=== PATIENT | female | born 1950 | race Caucasian/White ===

== ENCOUNTER 2016-12-23 12:45 | Emergency (ER) | payer BC ==
[~2016-12-23] VITALS: Ht 144.8 cm; Wt 73.2 kg
[~2016-12-23 12:45] MED LIST: BUDESUS NAE; CHOL100027 PO; Calcium PO; ESTR1CRE PV; ETOD400T PO; Juice Plus PO; NRT25 PO; PANT40TA PO; TPM25 PO
[2016-12-23 12:50] VITALS: TEMP 36.7; Ht 144.8 cm; Wt 73.2 kg
[2016-12-23 13:39] LABS: BASO % 0.5 %; BASO ABS # 0.02 K/uL (0-0.2); COMPLETE YES; EOS % 3.1 %; HEMATOCRIT 41.6 % (37-47); IG% 0.2 %; LYMPH % 22.6 %; LYMPH ABS # 0.94 K/uL (1.2-3.4); MEAN CELL VOLUME 91.8 fL (80-100); MEAN CORPUSCULAR HGB CONC 34.9 g/dl (32-36); MEAN PLATELET VOLUME 10.9 fL (7.4-10.4); MONO % 8.9 %; NEUT % 64.7 %; PLATELET COUNT 212 K/uL (130-400); RED BLOOD COUNT 4.53 M/uL (4.2-5.4); WHITE BLOOD COUNT 4.16 K/uL (4.8-10.8)
[2016-12-23 13:42] VITALS: O2SAT 97
[2016-12-23 13:53] LABS: PROTHROMBIN TIME (PATIENT) 10.5 SECONDS (9.0-12.0)
[2016-12-23 14:00] LABS: BUN/CREATININE RATIO 20.8 (10-20); CALCIUM 9.3 mg/dl (8.5-10.1); CREATININE 1.1 mg/dl (0.60-1.20); POTASSIUM 3.8 mmol/L (3.5-5.1)
--- NOTE | 2016-12-23 14:10 | DIAGNOSTIC IMAGING REPORT ---
TWO VIEW CHEST CLINICAL HISTORY: Dyspnea. Lower extremity edema. FINDINGS: PA and lateral chest radiographs are compared to study dated 05/05/2012. The cardiomediastinal silhouette is unremarkable. There is minimal left basilar atelectasis. The lungs and pleural spaces are otherwise clear. There is no pneumothorax. The skeletal structures are osteopenic. The bony thorax appears intact. IMPRESSION: No active disease in the chest. Electronically signed by: Jas Wood M.D. 12/23/2016 2:09 PM Dictated Date/Time: 12/23/2016 2:08 PM
[2016-12-23] MEDS ORDERED: OPTIRAY 320 IV PRN (14:30)
--- NOTE | 2016-12-23 15:01 | DIAGNOSTIC IMAGING REPORT ---
CHEST CTA for PULMONARY ARTERIES CT DOSE: 291.83 mGy.cm HISTORY: Pain. Dyspnea. eval for PE TECHNIQUE: Multiaxial CT images of the chest were performed following the intravenous administration of contrast to evaluate the pulmonary arteries. Maximal intensity projection images were also obtained. COMPARISON STUDY: None. FINDINGS: There is a normal caliber thoracic aorta with no evidence for dissection. There is no evidence for pulmonary embolus. No pleural effusions. No pneumothorax. The liver and spleen are unremarkable. No mediastinal or hilar lymphadenopathy. The central airways are patent. The lungs are clear. There is minimal dependent basilar atelectasis IMPRESSION: No evidence for pulmonary embolus. Lungs are clear. Minimal dependent basilar atelectasis Electronically signed by: Galo Brian M.D. 12/23/2016 3:00 PM Dictated Date/Time: 12/23/2016 2:57 PM
--- NOTE | 2016-12-23 15:35 | DIAGNOSTIC IMAGING REPORT ---
ULTRASOUND RIGHT UPPER QUADRANT ABDOMEN CLINICAL HISTORY: Right upper quadrant abdominal pain. COMPARISON STUDY: Abdominal ultrasound dated 01/29/2013. Abdominal CT dated 09/18/2011. TECHNIQUE: Real-time, grayscale, and color flow sonography of the right upper quadrant of the abdomen was performed. Images are reviewed in the transverse and longitudinal planes. FINDINGS: Liver: The liver is normal in size and echotexture. There is no intrahepatic biliary ductal dilatation. The main portal vein is patent. Gallbladder: The gallbladder is normal in appearance. No gallstones are identified. There is no gallbladder wall thickening or pericholecystic fluid. A sonographic Serna's sign is reportedly absent. The common bile duct measures up to 0.3 cm in diameter. Pancreas: Visualized portions of the pancreatic head and body are normal in appearance. Right kidney: Survey images of the right kidney demonstrate mild cortical atrophy and are normal in echotexture. There is no hydronephrosis. Ascites: None. IMPRESSION: No acute sonographic abnormality is identified in the right upper quadrant. No gallstones are seen. Electronically signed by: Jas Wood M.D. 12/23/2016 3:33 PM Dictated Date/Time: 12/23/2016 3:32 PM
--- NOTE | 2016-12-23 18:00 | EXERCISE STRESS ECHO ---
*NOTICE TO RECEIVING CONSTITUTION PARTY AGENCY This information is strictly Confidential and protected under [place] law. [place] law prohibits you from making any further disclosure of this information unless further disclosure is expressly permitted by the written consent of the person to whom it pertains or is authorized by law. A general authorization for the release of medical or other information is not sufficient for this purpose. Hospital accepts no responsibility if the information is made available to any other person, INCLUDING THE PATIENT. Interpretation Summary * Name: MATT BROWN Study Date: 12/23/2016 04:03 PM BP: 133/81 mmHg * Patient Location: [facility] HR: 88 * : 1950 (M/d/yyyy) Gender: Female Height: 57 in * Age: 66 yrs Ethnicity: [place] Weight: 161 lb * Ordering Physician: Louis Taylor * Referring Physician: Brenna Liriano * Performed By: Asiya Alejandro RDCS * * Reason For Study: Dyspnea * BSA: 1.6 m2 * Limited color flow exam of aortic and mitral valves performed. * The exercise echocardiographic examination is normal without resting left ventricular wall motion abnormalities or inducible ischemia. * The left ventricular ejection fraction increases normally with stress. The left ventricular end-systolic cavity size reduces post-stress (normal response). The left ventricular wall motion with stress is normal. * The stress echocardiogram is negative for inducible ischemia. * The stress ECG response was normal * No arrhythmia were noted with stress. * All left ventricular wall segments became hyperdynamic with stress, with appropriate decrease in left ventricular chamber dimension. * Stress wall motion was normal. * -- Conclusions -- * No segmental left ventricular wall motion abnormalities are noted. Procedure Details * ECHOEX, CPT #65280 Left Ventricle * The left ventricle is normal in size. * There is normal left ventricular wall thickness. * Left ventricular systolic function is normal. * Ejection Fraction = 65-70%. * The left ventricular ejection fraction increases normally with stress. The left ventricular end-systolic cavity size reduces post-stress (normal response). The left ventricular wall motion with stress is normal. * No segmental left ventricular wall motion abnormalities are noted. * Resting wall motion: Normal. Stress wall motion: Appropriate increase in Left ventricular systolic function and decrease in cavity size. No stress induced segmental wall motion abnormalities. * The left ventricular ejection fraction increases normally with stress. The left ventricular end-systolic cavity size reduces post-stress (normal response). The left ventricular wall motion with stress is normal. Right Ventricle * The right ventricle is normal in size and function. Atria * The left atrial size is normal. * Right atrial size is normal. Mitral Valve * The mitral valve is normal. * There is trace mitral regurgitation. Tricuspid Valve * The tricuspid valve is normal. Aortic Valve * The aortic valve is trileaflet. * The aortic valve opens well. * No aortic regurgitation is present. Stress Parameters * The baseline ECG displays normal sinus rhythm. * The baseline ECG displays normal ST segments. * The stress ECG response was normal * The stress portion of this study was personally supervised by the undersigned interpreting physician. * Rest heart rate was '88' BPM. * Rest blood pressure was '133/81' * Maximum heart rate achieved was 157 bpm. * Maximum heart rate was 102 % of maximum age-predicted heart rate. * Maximum blood pressure was '182/68' * Total exercise time was '9:00' * Maximum exercise MET level achieved was '10.10' METS * Maximum treadmill speed was '3.40' miles per hour. * Maximum treadmill elevation was '14.00'% grade. * Exercise was terminated due to 'fatigue' * No chest pain during or following exercise. * Normal blood pressure response to exercise. MMode 2D Measurements and Calculations IVSd 0.93 cm LVIDd 3.4 cm LVIDs 1.9 cm LVPWd 0.81 cm IVS/LVPW 1.1 FS 45.2 % EDV(Teich) 47.0 ml ESV(Teich) 10.5 ml EF(Teich) 77.6 % EDV(cubed) 38.9 ml ESV(cubed) 6.4 ml EF(cubed) 83.5 % LV mass(C)d 80.6 grams LV mass(C)dI 49.1 grams/m\S\2 SV(Teich) 36.5 ml SI(Teich) 22.2 ml/m\S\2 SV(cubed) 32.5 ml SI(cubed) 19.8 ml/m\S\2 LA dimension 2.5 cm LVAd ap4 17.2 cm\S\2 LVLd ap4 6.5 cm EDV(MOD-sp4) 36.9 ml EDV(sp4-el) 38.5 ml LVAs ap4 8.3 cm\S\2 LVLs ap4 4.8 cm ESV(MOD-sp4) 12.2 ml ESV(sp4-el) 12.0 ml EF(MOD-sp4) 66.9 % EF(sp4-el) 68.8 % LVAd ap2 18.9 cm\S\2 LVLd ap2 6.6 cm EDV(MOD-sp2) 44.1 ml EDV(sp2-el) 45.7 ml LVAs ap2 9.5 cm\S\2 LVLs ap2 5.2 cm ESV(MOD-sp2) 14.8 ml ESV(sp2-el) 14.9 ml EF(MOD-sp2) 66.5 % EF(sp2-el) 67.3 % LVLd %diff 1.5 % EDV(MOD-bp) 40.4 ml LVLs %diff 6.2 % ESV(MOD-bp) 13.5 ml EF(MOD-bp) 66.6 % SV(MOD-sp4) 24.7 ml SI(MOD-sp4) 15.1 ml/m\S\2 SV(MOD-sp2) 29.3 ml SI(MOD-sp2) 17.9 ml/m\S\2 SV(MOD-bp) 26.9 ml SI(MOD-bp) 16.4 ml/m\S\2 SV(sp4-el) 26.5 ml SI(sp4-el) 16.2 ml/m\S\2 SV(sp2-el) 30.8 ml SI(sp2-el) 18.8 ml/m\S\2
[2016-12-23 18:09] VITALS: BP 129/87; PULSE 94; O2SAT 98
--- NOTE | 2016-12-23 19:26 | EMERGENCY ROOM VISIT NOTE ---
History Report prepared by Grazyna: Una Griffith Under the Supervision of: Dr. Louis Taylor M.D. First contact with patient: 12:57 Chief Complaint: SHORTNESS OF BREATH Stated Complaint: SOB, INDIGESTION, R SHOULDER PAIN Nursing Triage Summary: Patient reports vague GI symptoms of ? nausea/diarrhea and diffuse abdominal pain. Patinet also reports occassional SOB. These symptoms started begining of the year. Spoke with PCP this date adn todl to come to ED for evaluation. negative cough, fever, chills. History of Present Illness The patient is a 66 year old female who presents to the Emergency Room with complaints of worsening shortness of breath with exertion over the past 5 weeks. The patient states that is fairly active and walks every day. She notes that when she walks about 5-10 minutes, she starts to get short of breath. She also has to stop in the middle of climbing a few flights of stairs to catch her breath. The patient did not notice her symptoms until other people were noticing her shortness of breath and told her about it. Her notes that she was climbing 2.5 flights of stairs with him recently and she had to stop on the way to catch her breath. He notes that it is not unusual for her to climb stairs so it was out of the ordinary that she was so winded. Her shortness of breath has been becoming more persistent. Since November 17, the patient has noticed changes in her bowel movements. She states that she has one episode of loose stool each day as well as a significant amount of gas. She initially attributed it to a poor diet during the holiday season but has since changed her diet and has not noticed any improvement. She notes that she usually has a response when she changes her diet. Occasionally, her stool appears greasy. She notices abdominal cramping when she has bowel movements. She has been trying to watch what type of fatty foods she eats but she does occasionally eat ice cream. The patient has a history of reflux which is characterized by a burning sensation in her chest. She has not had any chest discomfort that feels unlike her typical reflux discomfort. Last Friday, the patient developed sharp pain under her right scapula that started as a 2/10 and increased to a 10/10 within several minutes. The pain worsened with movement of her right arm. It lasted at that intensity for about 5 -6 hours. She was out of breath at that time, but she was also worked up about the pain she was having and is unsure if it was related to feeling scared. Her did not notice her being short of breath at the time. This morning, the patient e-mailed her PCP regarding her symptoms. Her PCP was concerned and recommended that she come to the emergency room. The patient has swelling to her ankles that began when she was started on gabapentin a few years ago and never went away when she was taken off of it. The patient does note that she had a fall over a week ago in which she landed on her right shoulder. She denies any right shoulder pain or injuries from the fall. Currently she has some lower back pain. She has a history of sciatica and was on etodolac 800 mg which relieved her pain. Recently, her dose was cut in half in an attempt to wean her off of it and she has had some pain since then. She still has her gallbladder. She does not have a history of diabetes, blood clots , hypertension, or heart disease. There is a family history of heart disease on her father's side. Her father had his first cardiac event in his early 60s. Denies fevers, neck pain, cough, cold symptoms, arm pain, bloody stool, black stool, or other complaints. Denies recent travel, immobilization, or surgeries. Source of History: patient, spouse/significant other Onset: 5 weeks ago Position: other (global) Quality: other (shortness of breath) Timing: worsening Modifying Factors (Worsening): exertion Associated Symptoms: + back pain, No fevers, No hematochezia, No melena, No neck pain Note: Other symptoms: loose stools, increased gas/belching, sharp right scapular pain (resolved) Review of Systems See HPI for pertinent positives & negatives. A total of 10 systems reviewed and were otherwise negative. Past Medical & Surgical Medical Problems: (1) ESOPHAGEAL REFLUX (2) OSTEOPOROSIS NOS Surgical Problems: (1) H/O tubal ligation Family History Cancer Heart disease Hypertension Social History Smoking Status: Never Smoker Alcohol Use: none Drug Use: none Marital Status: Housing Status: lives with family Current/Historical Medications Scheduled Cholecalciferol (Vitamin D 1000 Unit), 1,000 INTER.UNIT PO DAILY Estrogens, Conjugated Vaginal (Premarin), 1 APPLN PV UD Etodolac (Etodolac), 1 TAB PO BID Nortriptyline HCl (Nortriptyline HCl), 25 MG PO QPM Pantoprazole (Protonix), 40 MG PO QAM Topiramate (Topiramate), 25 MG PO DAILY [Calcium], 1,000 MG PO DAILY [Juice Plus], 1 DOSE PO DAILY Allergies Coded Allergies: Amoxicillin (Verified Allergy, Unknown, DIARRHEA, 02/12/16) Clavulanic Acid (Verified Allergy, Unknown, DIARRHEA, 02/12/16) Physical Exam Vital Signs Date Time Temp Pulse Resp B/P Pulse Ox O2 Delivery O2 Flow Rate FiO2 12/23/16 18:09 94 18 129/87 98 Room Air 12/23/16 16:29 84 18 131/90 99 Room Air 12/23/16 14:29 82 18 126/86 99 Room Air 12/23/16 13:47 88 12/23/16 13:42 97 Room Air 12/23/16 12:50 97 Room Air 12/23/16 12:50 36.7 69 16 137/61 97 Room Air Physical Exam Constitutional: Vital signs reviewed. Eyes: Pupils are equal round reactive to light. Conjunctiva are noninjected. ENT: Pharynx is clear without erythema or exudate. Mucous membranes are moist. Neck supple without meningeal signs. Respiratory: Clear to auscultation bilaterally. Breath sounds are equal bilaterally. Cardiovascular: Regular rate and rhythm. No rubs or gallops. GI: Soft, nondistended, epigastric tenderness, no guarding. Bowel sounds are present. Musculoskeletal: No peripheral edema. No lower extremity tenderness. No midline tenderness to the thoracic spine. Integumentary: No cyanosis. Neurological: The patient is awake and alert. No focal deficits. Psychiatric: Normal affect. Medical Decision & Procedures ER Provider Diagnostic Interpretation: Radiology results as stated below per my review and the radiologist's interpretation: TWO VIEW CHEST CLINICAL HISTORY: Dyspnea. Lower extremity edema. FINDINGS: PA and lateral chest radiographs are compared to study dated 05/05/2012. The cardiomediastinal silhouette is unremarkable. There is minimal left basilar atelectasis. The lungs and pleural spaces are otherwise clear. There is no pneumothorax. The skeletal structures are osteopenic. The bony thorax appears intact. IMPRESSION: No active disease in the chest. Electronically signed by: Jas Wood M.D. 12/23/2016 2:09 PM Dictated Date/Time: 12/23/2016 2:08 PM CHEST CTA for PULMONARY ARTERIES CT DOSE: 291.83 mGy.cm HISTORY: Pain. Dyspnea. eval for PE TECHNIQUE: Multiaxial CT images of the chest were performed following the intravenous administration of contrast to evaluate the pulmonary arteries. Maximal intensity projection images were also obtained. COMPARISON STUDY: None. FINDINGS: There is a normal caliber thoracic aorta with no evidence for dissection. There is no evidence for pulmonary embolus. No pleural effusions. No pneumothorax. The liver and spleen are unremarkable. No mediastinal or hilar lymphadenopathy. The central airways are patent. The lungs are clear. There is minimal dependent basilar atelectasis IMPRESSION: No evidence for pulmonary embolus. Lungs are clear. Minimal dependent basilar atelectasis Electronically signed by: Galo Brian M.D. 12/23/2016 3:00 PM Dictated Date/Time: 12/23/2016 2:57 PM ULTRASOUND RIGHT UPPER QUADRANT ABDOMEN CLINICAL HISTORY: Right upper quadrant abdominal pain. COMPARISON STUDY: Abdominal ultrasound dated 01/29/2013. Abdominal CT dated 09/18/2011. TECHNIQUE: Real-time, grayscale, and color flow sonography of the right upper quadrant of the abdomen was performed. Images are reviewed in the transverse and longitudinal planes. FINDINGS: Liver: The liver is normal in size and echotexture. There is no intrahepatic biliary ductal dilatation. The main portal vein is patent. Gallbladder: The gallbladder is normal in appearance. No gallstones are identified. There is no gallbladder wall thickening or pericholecystic fluid. A sonographic Serna's sign is reportedly absent. The common bile duct measures up to 0.3 cm in diameter. Pancreas: Visualized portions of the pancreatic head and body are normal in appearance. Right kidney: Survey images of the right kidney demonstrate mild cortical atrophy and are normal in echotexture. There is no hydronephrosis. Ascites: None. IMPRESSION: No acute sonographic abnormality is identified in the right upper quadrant. No gallstones are seen. Electronically signed by: Jas Wood M.D. 12/23/2016 3:33 PM Dictated Date/Time: 12/23/2016 3:32 PM Laboratory Results 12/23/16 13:30 Red Blood Count 4.53, Mean Corpuscular Volume 91.8, Mean Corpuscular Hemoglobin 32.0, Mean Corpuscular Hemoglobin Concent 34.9, Mean Platelet Volume 10.9, Neutrophils (%) (Auto) 64.7, Lymphocytes (%) (Auto) 22.6, Monocytes (%) (Auto) 8.9, Eosinophils (%) (Auto) 3.1, Basophils (%) (Auto) 0.5, Neutrophils # (Auto) 2.69, Lymphocytes # (Auto) 0.94, Monocytes # (Auto) 0.37, Eosinophils # (Auto) 0.13, Basophils # (Auto) 0.02 12/23/16 13:30 Test 12/23/16 13:30 12/23/16 13:37 White Blood Count 4.16 K/uL (4.8-10.8) Red Blood Count 4.53 M/uL (4.2-5.4) Hemoglobin 14.5 g/dL (12.0-16.0) Hematocrit 41.6 % (37-47) Mean Corpuscular Volume 91.8 fL (80-100) Mean Corpuscular Hemoglobin 32.0 pg (25-34) Mean Corpuscular Hemoglobin Concent 34.9 g/dl (32-36) Platelet Count 212 K/uL (130-400) Mean Platelet Volume 10.9 fL (7.4-10.4) Neutrophils (%) (Auto) 64.7 % Lymphocytes (%) (Auto) 22.6 % Monocytes (%) (Auto) 8.9 % Eosinophils (%) (Auto) 3.1 % Basophils (%) (Auto) 0.5 % Neutrophils # (Auto) 2.69 K/uL (1.4-6.5) Lymphocytes # (Auto) 0.94 K/uL (1.2-3.4) Monocytes # (Auto) 0.37 K/uL (0.11-0.59) Eosinophils # (Auto) 0.13 K/uL (0-0.5) Basophils # (Auto) 0.02 K/uL (0-0.2) RDW Standard Deviation 45.7 fL (36.4-46.3) RDW Coefficient of Variation 13.6 % (11.5-14.5) Immature Granulocyte % (Auto) 0.2 % Immature Granulocyte # (Auto) 0.01 K/uL (0.00-0.02) Prothrombin Time 10.5 SECONDS (9.0-12.0) Prothromb Time International Ratio 1.0 (0.9-1.1) Activated Partial Thromboplast Time 25.3 SECONDS (21.0-31.0) Partial Thromboplastin Ratio 1.0 Anion Gap 11.0 mmol/L (3-11) Est Creatinine Clear Calc Drug Dose 41.1 ml/min Estimated GFR () 60.2 Estimated GFR (Non- 51.9 BUN/Creatinine Ratio 20.8 (10-20) Calcium Level 9.3 mg/dl (8.5-10.1) Total Bilirubin 0.7 mg/dl (0.2-1) Direct Bilirubin 0.2 mg/dl (0-0.2) Aspartate Amino Transf (AST/SGOT) 25 U/L (15-37) Alanine Aminotransferase (ALT/SGPT) 28 U/L (12-78) Alkaline Phosphatase 93 U/L (45-117) Total Protein 7.1 gm/dl (6.4-8.2) Albumin 3.5 gm/dl (3.4-5.0) Lipase 209 U/L (73-393) Bedside D-Dimer > 450 ng/mlFEU (0-450) Bedside Troponin I 0.000 ng/ml (0-0.045) Laboratory results as reviewed by me. ECG Indication: SOB/dyspnea Rate (beats per minute): 84 Rhythm: normal sinus Findings: no acute ischemic change, no ectopy ED Course 1301: The patient was evaluated in room C11. A complete history and physical exam was performed. 1418: I updated the patient on results so far. She agreed to a CT scan. 1550: I reassessed the patient and updated her on results. She is currently asymptomatic. We are waiting on cardiology to call back. 1555: I discussed the case with [facility]. He agreed to the ultrasound. 1736: I spoke with Dr. Joana Jeffries [facility]. The patient's stress echo and echocardiogram were normal. 1748: I reassessed the patient and discussed test results with her. I discussed the limitations of the stress test and recommended close follow up with her PCP for further work-up. The patient will be discharged home. Medical Decision This is a 66-year-old female who presents with dyspnea on exertion, abdominal pain and thoracic back pain. Differential diagnosis includes acute coronary syndrome, CHF, pericardial effusion, pulmonary embolism, metabolic derangement, anemia, cholelithiasis, pancreatitis, peptic ulcer disease. I did perform a limited focused review of portions of the patient's old chart on the electronic medical record. The patient has had no recent pertinent visits to this hospital. I did evaluate the patient as noted above. The patient has had dyspnea on exertion for the past 5 weeks. She used to run marathons but recently is having trouble climbing several flights of stairs. She denies any chest discomfort but did have thoracic right-sided back pain 2 days ago which has since resolved. She also complains of 5 weeks of abdominal pain with increased gas and loose stools. IV access was established. The patient was placed on a continuous surveillance monitor. I did order and personally review the patient's 12- lead EKG and chest x-ray as described above. I did order and review the patient 's blood work as noted in the electronic medical record. LFTs and lipase are unremarkable. White blood cell count is not elevated. Troponin is negative. D -dimer is elevated. After discussion with the patient I did order a CT of the chest. I did review the images myself as well as the radiology report as described above. There is no evidence of pulmonary embolism. I did order an ultrasound of the right upper quadrant which did not show any evidence of gallbladder disease or acute abnormality. I did order a stress echocardiogram. This was reviewed by Dr. Bernard of cardiology. No acute abnormality was found on the echocardiogram or stress portion of the exam. At this time the cause of her dyspnea on exertion is unclear. I did discuss with her the limitations of the workup done here in emergency department and recommended close follow up with her primary care provider. She may need further workup regarding her abdominal pain including possibly CT scanning or colonoscopy. She was discharged in good condition. Consults Time Called: 1545 Consulting Physician: [facility] Returned Call: [phone] I discussed the case with him. He agreed to the ultrasound. Additional Consults: Time Called: 1730 Consulted Physician: Dr. Joana DAO [facility]iology Returned Call: [phone] Additional Comments: The patient's stress echo and echocardiogram were normal. Impression Primary Impression: Dyspnea on exertion Additional Impressions: Right-sided thoracic back pain Upper abdominal pain Scribe Attestation The scribe's documentation has been prepared under my direct and personally reviewed by me in its entirety. I confirm that the note above accurately reflects all work, treatment, procedures, and medical decision making performed by me. Departure Information Dispostion Home / Self-Care Referrals Brenna Liriano (PCP) Forms HOME CARE DOCUMENTATION FORM, IMPORTANT VISIT INFORMATION Patient Instructions ED Abd Pain Unkn Cause Fem, ED Dyspnea Shortness of Breath, My [facility] Additional Instructions You have been examined and treated today on an emergency basis only. This is not a substitute for, or an effort to provide, complete comprehensive medical care. It is impossible to recognize and treat all injuries or illnesses in a single emergency department visit. It is therefore important that you follow up closely with your physician. Call as soon as possible for an appointment. Return for worsening symptoms or if you develop fever, vomiting, chest discomfort or pain, or any other concerning symptoms. Problem Qualifiers Additional Impressions: Right-sided thoracic back pain Chronicity: acute Qualified Codes: M54.6 - Pain in thoracic spine
[2017-07-29] MEDS ORDERED: TOPI25TA99 PO (07:45)
[2017-07-29] MEDS ORDERED: PANT40TA PO (07:45)
[2017-07-29] MEDS ORDERED: HYOS1TAB PO (07:45)
[2017-07-29] MEDS ORDERED: CALC500T25 PO (07:45)
[2017-07-29] MEDS ORDERED: JUICE PLUS PO (07:45)
[2017-07-31] MEDS ORDERED: OXYC-57 PO (08:58)
== END 2016-12-23 18:21 | disposition home or self-care (01) ==
LOC: C.EDB 12:46 → C.EDC 18:21
DX: R06.09 Other forms of dyspnea (principal); M54.6 Pain in thoracic spine; R10.10 Upper abdominal pain, unspecified; R79.0 Abnormal level of blood mineral; K21.9 Gastro-esophageal reflux disease without esophagitis; M81.0 Age-related osteoporosis without current pathological fracture; Z79.899 Other long term (current) drug therapy; Z82.49 Family history of ischemic heart disease and other diseases of the circulatory system

== ENCOUNTER → 2017-04-09 | Outpatient (CLI) | payer BC ==
[~2017-04-09] MED LIST changes: -BUDESUS NAE; +CALC500T25 PO; +HYOS1TAB PO; +JUICE PLUS PO; +OXYC-57 PO; +TOPI25TA99 PO
--- NOTE | 2017-04-09 12:58 | MAMMOGRAPHY REPORT ---
BILATERAL DIGITAL SCREENING MAMMOGRAM WITH CAD: 04/09/2017 CLINICAL HISTORY: Routine screening. Patient has no complaints. TECHNIQUE: Current study was also evaluated with a Computer Aided Detection (CAD) system. Bilatera l CC and MLO views were obtained. COMPARISON: Comparison is made to exams dated: 04/08/2016 mammogram, 04/05/2015 mammogram, 04/04/2014 mammogram, 04/01/2013 mammogram, 03/30/2012 mammogram, and 03/29/2011 mammogram - [facility]. BREAST COMPOSITION: There are scattered areas of fibroglandular density in both breasts. FINDINGS: No suspicious masses, calcifications, or areas of architectural distortion are noted in e ither breast. There has been no significant interval change compared to prior exams. A biopsy marke r clip is again noted in the left central breast. IMPRESSION: ACR BI-RADS CATEGORY 2: BENIGN There is no mammographic evidence of malignancy. A 1 year screening mammogram is recommended. The p atient will receive written notification of the results. Approximately 10% of breast cancers are not detected with mammography. A negative mammographic repor t should not delay biopsy if a clinically suggestive mass is present. Danita Hou M.D. ah/:04/09/2017 10:00:51 Scientific Software Developer: Harvey BROWN(R)(M), [facility] letter sent: Normal 1/2 BI-RADS Code: ACR BI-RADS Category 2: Benign
== END | disposition home or self-care (01) ==
LOC: C.MAMM 09:24
PROVIDERS: ATTEND Nurse Practitioner Family
DX: Z12.31 Encounter for screening mammogram for malignant neoplasm of breast (principal)

== ENCOUNTER → 2017-07-28 | Outpatient (CLI) | payer BC | END | disposition home or self-care (01) | LOC: C.CPL 10:41 | PROVIDERS: ATTEND Orthopaedic Surgery | DX: Z01.818 Encounter for other preprocedural examination (principal); M25.512 Pain in left shoulder ==

== ENCOUNTER → 2017-07-31 | Day surgery (SDC) | payer BC ==
[2017-07-29 07:46] VITALS: Ht 144.8 cm; Wt 68.2 kg
[~2017-07-31] VITALS: Ht 144.8 cm; Wt 68.2 kg
[~2017-07-31] MED LIST changes: +ATROPINE SULFATE 0.1 MG/ML 5ML SYR IV PRN; +BUPIVACAINE/EPINEPHRINE 0.25% 1:200,000 30 ML VIAL ONE; +CLINDAMYCIN PHOS 150 MG/ML 2 ML VIAL IV SCH; +DEXAMETHASONE SOD INJ 4 MG/ML VIAL ONE; +EpHEDrine SULFATE INJ 50 MG/ML AMP IV PRN; +EpINEphrine INJ 1MG/ML AMP 1 MG/ML AMP ONE; +FENTANYL CITRATE INJ 50 MCG/1 ML 2 ML VIAL ONE; +LACTATED RINGER'S 1000ML 1,000 ML IV SCH; +LIDOCAINE HCL 2% 2 ML VIAL (20MG/ML) ONE; +METHYLPREDNISOLONE ACETATE 80 MG/ML VIAL ONE; +MIDAZOLAM HCL 1 MG/ML 2ML VIAL ONE; +ONDANSETRON INJ 2 MG/ML 2 ML VIAL IV PRN; +ONDANSETRON INJ 2 MG/ML 2 ML VIAL ONE; +OXYCODONE/ACETAMINOPHEN 5-325 TAB PO PRN; +PROPOFOL IV EMULSION 10 MG/ML 20 ML VIAL IV ONE; +ROPIVACAINE 0.5% 5 MG/ML 30 ML VIAL ONE; +SODIUM CHLORIDE 0.9% 1000ML 1,000 ML IV SCH
--- NOTE | 2017-07-31 06:47 | History & Physical Bridge Note ---
H&P Re-Evaluation Bridge Note: I have examined the patient, reviewed the History & Physical and in the interval since the performance of the History & Physical I have noted the following changes of clinical significance: No changes noted
--- NOTE | 2017-07-31 09:01 | Discharge Instructions-SurgCtr ---
Discharge Instructions Date of Service Jul 31, 2017. Visit Reason for Visit: Left Shoulder Adhesive Capsulitis Discharge Discharge Diagnosis / Problem: SAME ABOVE Discharge Goals Goal(s): Decrease discomfort, Improve function Medications Stopped Medications Name(s): etodolac, last dose 07/28/17 Restart Stopped Medication(s): MAY RESTART 07/31/2017 Activity Recommendations Activity Limitations: as noted below Lifting Limitations: gradually increase as tolerated Exercise/Sports Limitations: gradually increase as tolerated Shower/Bathe: tomorrow Anesthesia . Post Anesthesia Instructions: If you have had General Anesthesia or IV Sedation: * Do not drive today. * Resume driving when surgeon permits. * Do not make important decisions or sign legal documents today. * Call surgeon for: 1. Temperature elevations greater than 101 degrees F. 2. Uncontrollable pain. 3. Excessive bleeding. 4. Persistent nausea and vomiting. 5. Medication intolerance (nausea, vomiting or rash). * For nausea and vomiting use only clear liquids such as: tea, soda, bouillon until nausea subsides, then gradually increase diet as tolerated. * If you have any concerns or questions, call your surgeon's office. If physician is unavailable and it is an emergency, call 911 or go to the nearest emergency room. . Instructions / Follow-Up Instructions / Follow-Up MEDICATIONS: * Resume previous medications unless instructed otherwise by your surgeon. * Always take pain medication on a full stomach or with food to avoid upset stomach. * Do not drink alcohol or drive while taking narcotics. * Ibuprofen or Tylenol may be taken if narcotic not needed. SPECIAL CARE INSTRUCTIONS: __ None _X_ Keep extremity elevated and iced x 48 hours; apply ice 20-30 minutes 8-10 times/day. May remove at night. _X_ Sling (REMOVE AFTER 24 HOURS) __24 hrs/day __ Remove at night __ Shoulder Immobilizer __ 24 hrs/day __ Remove at night _X_ Dressing __ Maintain until seen in office, may shower with plastic over site _X_ Remove dressings in 24-48 hours and then may shower _X_ Cover incisions with band-aids after showering __ Do not remove steri-strips Call physician if chills or temperature rises above 102 degrees or pain unrelieved by prescribed pain medications at . . Diet Recommendations Home Diet: no limitations Fluid Restriction: None Procedures Procedures Performed: Left Shoulder Arthroscopic Capsular Release Pending Studies Studies pending at discharge: no Work Instructions Lifting Limitations: none Medical Emergencies . Who to Call and When: Medical Emergencies: If at any time you feel your situation is an emergency, please call 911 immediately. . Non-Emergent Contact Non-Emergency issues call your: Primary Care Provider Call Non-Emergent contact if: you have a fever, temperature is above 101.5 . . "Provider Documentation" section prepared by Shabbir Ramirez. .
[2017-07-31 10:09] VITALS: BP 132/85; PULSE 96; O2SAT 97
--- NOTE | 2017-07-31 10:11 | Anesthesiology Progress Note ---
Anesthesia Post Op Note Date & Time Jul 31, 2017 at 10:11 Vital Signs Pain Intensity: 5 Vital Signs Past 12 Hours Date Time Temp Pulse Resp B/P (MAP) Pulse Ox O2 Delivery O2 Flow Rate FiO2 07/31/17 10:09 96 16 132/85 (101) 97 Room Air 07/31/17 09:33 36.2 73 16 112/70 (84) 96 Room Air 07/31/17 09:27 92 22 07/31/17 09:27 91 22 95 07/31/17 09:26 143/88 07/31/17 09:23 36.1 91 18 143/88 96 Room Air 07/31/17 09:22 88 18 07/31/17 09:22 88 18 138/86 97 07/31/17 09:17 93 14 07/31/17 09:17 94 14 98 07/31/17 09:15 139/85 07/31/17 09:12 88 14 07/31/17 09:12 88 14 100 07/31/17 09:11 140/85 07/31/17 09:07 87 15 07/31/17 09:07 87 15 100 07/31/17 09:06 154/65 07/31/17 09:02 92 22 07/31/17 09:02 92 22 100 07/31/17 09:01 143/83 07/31/17 08:57 90 16 07/31/17 08:57 90 16 100 07/31/17 08:55 36.1 90 18 132/92 97 Mask 6 07/31/17 08:55 132/82 07/31/17 08:12 82 25 100 07/31/17 08:12 83 07/31/17 08:11 77 15 132/84 100 07/31/17 08:11 77 07/31/17 08:06 76 15 100 07/31/17 08:06 76 07/31/17 08:05 139/80 07/31/17 08:01 83 30 131/112 100 07/31/17 08:01 83 07/31/17 07:56 83 14 142/82 100 07/31/17 07:56 83 07/31/17 07:51 82 07/31/17 07:51 82 17 135/86 100 07/31/17 07:50 86 18 100 07/31/17 07:50 86 07/31/17 07:46 138/83 07/31/17 07:45 81 07/31/17 07:45 81 16 100 07/31/17 07:41 136/77 07/31/17 07:40 88 07/31/17 07:40 89 23 100 07/31/17 07:36 124/80 07/31/17 07:35 85 6 99 07/31/17 07:35 85 07/31/17 07:31 126/80 07/31/17 07:30 83 07/31/17 07:30 83 3 98 07/31/17 07:26 129/81 07/31/17 07:25 87 0 07/31/17 06:36 36.8 95 16 119/74 (89) 96 Room Air Notes Mental Status: alert / awake / arousable Pt Amnestic to Procedure: Yes Nausea / Vomiting: adequately controlled Pain: adequately controlled Airway Patency, RR, SpO2: stable & adequate BP & HR: stable & adequate Hydration State: stable & adequate Anesthetic Complications: no major complications apparent
--- NOTE | 2017-07-31 14:50 | [facility] Post Operative Brief Note ---
Immediate Operative Summary Operative Date Jul 31, 2017. Pre-Operative Diagnosis Left Shoulder Adhesive Capsulitis Post-Operative Diagnosis Same Procedure(s) Performed Left Shoulder Arthroscopic Capsular Release Surgeon Dr. Kumari Block Hand Surgeon(s) Cristal Ramirez PA-C Estimated Blood Loss 5 ml Findings as above Specimens None Complication(s) None Disposition Recovery Room / PACU
--- NOTE | 2017-07-31 20:27 | OPERATIVE REPORT ---
DATE OF OPERATION: 07/31/2017 PREOPERATIVE DIAGNOSIS: Adhesive capsulitis of the left shoulder. POSTOPERATIVE DIAGNOSIS: Same. PROCEDURE: Left shoulder extensive debridement with lysis of adhesions and manipulation under anesthesia. SURGEON: Dr. Fredi Kumari. MIRROR FRAMER: Rangel Ramirez PA-C, whose assistance was necessary for positioning the arm and helping with instrumentation. ANESTHESIA: General with a left interscalene nerve block. COMPLICATIONS: None. CONDITION: Stable to PACU. INDICATIONS: Yanely is a pleasant 59-year-old female who presented to my office with chronic pain and tightness of her left shoulder. MRI and clinical examination were diagnostic for adhesive capsulitis of the left shoulder. After failing conservative treatment, she elected to undergo a left shoulder arthroscopy. DESCRIPTION OF PROCEDURE: On 07/31/2017, she arrived at [facility] for the above procedure. She was seen in the preoperative holding area and the operative extremity was identified, given preoperative and a left interscalene nerve block. She was taken back to the operating room, laid on the table in supine position and put under general anesthesia. She was then placed into the beach chair position. The left shoulder was prepped and draped in sterile fashion. Time-out was done and the patient and operative extremity was properly identified. On preoperative physical examination, she had about 50 degrees of abduction, 30 degrees of external rotation, and 0 degrees of internal rotation. A gentle manipulation was done after anesthesia just distal to the insertion of the scope. The scope was then placed in the posterior portal. Diagnostic arthroscopy showed no cartilage damage to the humeral head or the glenoid. There was fraying of the anterior labrum. The biceps tendon was intact. The rotator cuff was intact throughout. There was significant amount of scarring and adhesions within the rotator interval and significant scarring of the middle and anterior inferior glenohumeral ligaments. An anterior portal was made. A shaver was used to start an extensive debridement of the structures. Time was spent just opening up the rotator interval some and debriding back the frayed labrum. An ablator was then used to do a lysis of adhesions. This superior glenohumeral ligament was released from the interval from the biceps tendon all the way back to the undersurface of the coracoid. Time was spent lysing the middle glenohumeral ligament, as well as the anterior inferior glenohumeral ligament. Care was taken not to disrupt the subscapularis or the axillary nerve. A shaver was then used to continue debridement and to debride back the inflamed ligaments back toward stable margins. Once I was happy with the complete capsular release, arthroscopic instruments from the shoulder and a gentle the manipulation was once again done under anesthesia. I was able to get full range of motion of her shoulder. The scope was placed back into the joint. Time was spent ensuring complete hemostasis. The shoulder joint was then injected by direct visualization with 80 mg of Depo-Medrol and 5 mL of Marcaine. Portal sites were then closed with 3-0 nylon. She was then placed in a soft dressing and regular arm sling. She was then extubated, transferred to a [facility] and taken to the postanesthesia care unit in stable condition. She tolerated the procedure well. I attest to the content of the Intraoperative Record and any orders documented therein. Any exception s are noted below.
== END | disposition home or self-care (01) ==
LOC: X.SURG 06:24
PROVIDERS: ATTEND Orthopaedic Surgery
DX: M75.02 Adhesive capsulitis of left shoulder (principal)

== ENCOUNTER 2017-12-08 21:31 | Emergency (ER) | payer BC, OTHER ==
[~2017-12-08] VITALS: Ht 147.3 cm; Wt 68.7 kg
[~2017-12-08 21:31] MED LIST changes: -ATROPINE SULFATE 0.1 MG/ML 5ML SYR IV PRN; -BUPIVACAINE/EPINEPHRINE 0.25% 1:200,000 30 ML VIAL ONE; -CLINDAMYCIN PHOS 150 MG/ML 2 ML VIAL IV SCH; -Calcium PO; -DEXAMETHASONE SOD INJ 4 MG/ML VIAL ONE; -EpHEDrine SULFATE INJ 50 MG/ML AMP IV PRN; -EpINEphrine INJ 1MG/ML AMP 1 MG/ML AMP ONE; -FENTANYL CITRATE INJ 50 MCG/1 ML 2 ML VIAL ONE; -Juice Plus PO; -LACTATED RINGER'S 1000ML 1,000 ML IV SCH; -LIDOCAINE HCL 2% 2 ML VIAL (20MG/ML) ONE; -METHYLPREDNISOLONE ACETATE 80 MG/ML VIAL ONE; -MIDAZOLAM HCL 1 MG/ML 2ML VIAL ONE; -ONDANSETRON INJ 2 MG/ML 2 ML VIAL IV PRN; -ONDANSETRON INJ 2 MG/ML 2 ML VIAL ONE; -OXYCODONE/ACETAMINOPHEN 5-325 TAB PO PRN; -PROPOFOL IV EMULSION 10 MG/ML 20 ML VIAL IV ONE; -ROPIVACAINE 0.5% 5 MG/ML 30 ML VIAL ONE; -SODIUM CHLORIDE 0.9% 1000ML 1,000 ML IV SCH; -TPM25 PO
[2017-12-08 21:39] VITALS: BP 146/89; PULSE 99; TEMP 36.5; O2SAT 97; Ht 147.3 cm; Wt 68.7 kg
[2017-12-08] MEDS ORDERED: LORAZEPAM 1 MG TAB SL STA (22:10)
--- NOTE | 2017-12-08 22:44 | DIAGNOSTIC IMAGING REPORT ---
HEAD WITHOUT CONTRAST (CT) CT DOSE: 1025.37 mGy.cm HISTORY: Trauma fall hit head TECHNIQUE: Multiaxial CT images of the head were performed without the use of intravenous contrast. A dose lowering technique was utilized adhering to the principles of ALARA. Comparison: None. Findings: The paranasal sinuses and mastoid air cells are clear. The calvarium and skull base are intact. The ventricles and sulci are within normal limits. There is no mass, hematoma, midline shift, or acute infarct. Impression: No acute intracranial abnormality. The above report was generated using voice recognition software. It may contain grammatical, syntax or spelling errors. Electronically signed by: Galo Brian M.D. 12/08/2017 10:43 PM Dictated Date/Time: 12/08/2017 10:42 PM
--- NOTE | 2017-12-08 22:46 | DIAGNOSTIC IMAGING REPORT ---
CERVICAL SPINE W/O CT DOSE: HISTORY: Trauma fall hit had TECHNIQUE: Multiaxial CT images of the cervical spine were performed and reformatted in the sagittal and coronal plane without the use of contrast. A dose lowering technique was utilized adhering to the principles of ALARA. COMPARISON: None. FINDINGS: No fractures. No subluxation. Prevertebral soft tissues and the C1-C2 interval are intact. No pneumothorax. Generalized degenerative change throughout. Degenerative change of the lateral facets throughout the entire cervical region. IMPRESSION: No fractures within the cervical spine. Generalized degenerative change. The above report was generated using voice recognition software. It may contain grammatical, syntax or spelling errors. Electronically signed by: Galo Brian M.D. 12/08/2017 10:45 PM Dictated Date/Time: 12/08/2017 10:44 PM
--- NOTE | 2017-12-08 23:46 | EMERGENCY ROOM VISIT NOTE ---
History Report prepared by Grazyna: Fernando Mcclelland Under the Supervision of: Dr. Stevo Roblero D.O. First contact with patient: 22:06 Chief Complaint: HEAD INJURY (MINOR) Stated Complaint: CT SCAN BY DR CAICEDO- POSSIBLE CONCUSSION History of Present Illness The patient is a 67 year old female who presents to the Emergency Room with a referral for a head CT following a single fall occurring 7 hours ago. The patient states that she fell up the stairs today, and hit her head. She notes that she remembers the entire episode, and did not pass out. She reports that she has a lump on the back left of her head. She does not take any blood thinners. She has no chest pain, neck, back, pelvis or extremity pain. Pt denies headache, change in vision, fevers, chest pain, shortness of breath, nausea, vomiting, diarrhea, pain with urination, hip pain, and melena. Source of History: patient Onset: 7 hours ago Position: head Quality: other (referral for head CT) Timing: other (single event) Associated Symptoms: No LOC, No fevers, No headache, No neck pain, No chest pain, No SOB, No nausea, No vomiting, No diarrhea, No urinary symptoms Note: She complains of a lump on the back of the left side of her head. She denies any pelvis pain, extremity pain, and melena. Review of Systems See HPI for pertinent positives & negatives. A total of 10 systems reviewed and were otherwise negative. Past Medical & Surgical Medical Problems: (1) ESOPHAGEAL REFLUX (2) OSTEOPOROSIS NOS Surgical Problems: (1) H/O tubal ligation Family History Cancer Heart disease Hypertension Social History Smoking Status: Never Smoker Alcohol Use: none Drug Use: none Marital Status: Housing Status: lives with family Current/Historical Medications Scheduled Calcium Carbonate (Calcium), 1 TAB PO QAM Cholecalciferol (Vitamin D 1000 Unit), 1,000 INTER.UNIT PO QAM Estrogens, Conjugated Vaginal (Premarin), 1 APPLN PV UD Etodolac (Etodolac), 1 TAB PO BID Hyoscyamine Sulfate (Levsin), 0.125 MG PO TID Nortriptyline HCl (Nortriptyline HCl), 25 MG PO QPM Pantoprazole (Protonix), 40 MG PO BID Topiramate (Topamax ), 25 MG PO BID [Juice Plus], 6 CAP PO QAM Scheduled PRN Oxycodone/Acetaminophen 5MG/325MG (Percocet 5MG/325MG), 1-2 TABLETS PO Q6 PRN for Pain Allergies Coded Allergies: Dust (Verified Allergy, Mild, WATERY EYES AND COUGH, 07/31/17) Dust Mite Extract (Verified Allergy, Mild, WATERY EYES & COUGH, 07/31/17) Amoxicillin (Verified Adverse Reaction, Mild, DIARRHEA, 07/31/17) Clavulanic Acid (Verified Adverse Reaction, Mild, DIARRHEA, 07/31/17) Physical Exam Vital Signs Date Time Temp Pulse Resp B/P (MAP) Pulse Ox O2 Delivery O2 Flow Rate FiO2 12/08/17 21:39 36.5 99 18 146/89 97 Room Air Physical Exam GENERAL: alert, well appearing, well nourished, no distress, non-toxic HEAD: normal cephalic, with a small contusion to the left parietal region EYE EXAM: normal conjunctiva, PERRL and EOM's grossly intact OROPHARYNX: no exudate, no erythema, lips, buccal mucosa, and tongue normal and mucous membranes are moist EARS: TMs clear b/l NECK: supple, no nuchal rigidity, no adenopathy, non-tender CHEST: stable to compression anteriorly and posteriorly LUNGS: clear to auscultation. Normal chest wall mechanics HEART: no murmurs, S1 normal and S2 normal ABDOMEN: abdomen soft, non-tender, normo-active bowel sounds, no masses, no rebound or guarding. PELVIS: stable to compression anteriorly and posteriorly BACK: Back is symmetrical on inspection and there is no deformity, no midline tenderness, no CVA tenderness. UPPER EXTREMITIES: full active and passive range of motion of all joints without tenderness to palpation LOWER EXTREMITIES: full active and passive range of motion of all joints without tenderness to palpation NEURO EXAM: Normal sensorium, cranial nerves II-XII grossly intact, normal speech, no gross weakness of arms, no gross weakness of legs. GCS: 15. Medical Decision & Procedures ER Provider Diagnostic Interpretation: Radiology results as stated below per my review and the radiologist's interpretation: HEAD WITHOUT CONTRAST (CT) CT DOSE: 1025.37 mGy.cm HISTORY: Trauma fall hit head TECHNIQUE: Multiaxial CT images of the head were performed without the use of intravenous contrast. A dose lowering technique was utilized adhering to the principles of ALARA. Comparison: None. Findings: The paranasal sinuses and mastoid air cells are clear. The calvarium and skull base are intact. The ventricles and sulci are within normal limits. There is no mass, hematoma, midline shift, or acute infarct. Impression: No acute intracranial abnormality. The above report was generated using voice recognition software. It may contain grammatical, syntax or spelling errors. Electronically signed by: Galo Brian M.D. 12/08/2017 10:43 PM CERVICAL SPINE W/O CT DOSE: HISTORY: Trauma fall hit had TECHNIQUE: Multiaxial CT images of the cervical spine were performed and reformatted in the sagittal and coronal plane without the use of contrast. A dose lowering technique was utilized adhering to the principles of ALARA. COMPARISON: None. FINDINGS: No fractures. No subluxation. Prevertebral soft tissues and the C1-C2 interval are intact. No pneumothorax. Generalized degenerative change throughout. Degenerative change of the lateral facets throughout the entire cervical region. IMPRESSION: No fractures within the cervical spine. Generalized degenerative change. The above report was generated using voice recognition software. It may contain grammatical, syntax or spelling errors. Electronically signed by: Galo Brian M.D. 12/08/2017 10:45 PM Medications Administered Medications (Trade) Dose Ordered Sig/Margarita Route Start Time Stop Time Status Last Admin Dose Admin Lorazepam (Ativan Tab) 1 mg NOW STAT SL 12/08/17 22:10 12/08/17 22:12 DC 12/08/17 22:29 1 MG ED Course ED COURSE: Vital signs were reviewed and showed the patient to be tachycardic and situationally hypertensive. The patients medical record was reviewed The above diagnostic studies were performed and reviewed. ED treatments and interventions as stated above. 2206: The patient was evaluated in room B11. A complete history and physical examination was performed. 2210: Lorazepam 1mg SL 2247: I reevaluated and updated the patient. 2258: Upon reevaluation, the patient is stable. I discussed my findings with the patient and she understands and agrees with the treatment plan.Based on the patients age, coexisting illnesses, exam and lab findings the decision to treat as an outpatient was made. The patient remained stable while under my care. The patient appeared well at the time of discharge. Medical Decision Differential diagnoses include major intracranial, cervical, spinal, thoracic, abdominal, pelvic and neurologic injury. Fracture, contusion, sprain, strain, laceration, abrasions included as well. Patient is a 67-year-old female referred in by PCP following a fall around 3 PM where she hit her head. She was going up the steps and tripped. No loss consciousness. No blood thinners. Completely neurologically intact. CT head and cervical spine was performed and was unremarkable. Ativan was given to obtain the CT as she is very anxious. Patient was updated bedside. She had no other complaints. She was discharged follow-up with PCP as an outpatient. Discussed with Pt concerning signs and symptoms to watch out for. Pt was instructed to follow up with their PCP and discussed with the patient their option to return to the ED at anytime for persistent or worsening symptoms. The appropriate anticipatory guidance and out-patient management, including indications for return to the emergency department, were explained at length to the patient and understood. Head Trauma GCS Score: 15 Medication Reconcilliation Current Medication List: was personally reviewed by me Blood Pressure Screening Patient's blood pressure: Elevated blood pressure Blood pressure disposition: Elevated BP felt to be situational Impression Primary Impression: Contusion of head Scribe Attestation The scribe's documentation has been prepared under my direction and personally reviewed by me in its entirety. I confirm that the note above accurately reflects all work, treatment, procedures, and medical decision making performed by me. Departure Information Dispostion Home / Self-Care Referrals Brenna Liriano (PCP) Forms HOME CARE DOCUMENTATION FORM, IMPORTANT VISIT INFORMATION Patient Instructions My [facility] Additional Instructions Please follow up with your primary care doctor with in the next 24 hours. Any worsening of your symptoms, please return to the ED immediately. This includes any fevers greater than 100.4, worsening pain, chest pain, shortness breath, persistent nausea, vomiting, unable to eat or drink, or any other concerning signs or symptoms from your standpoint. Please take Tylenol or Motrin as needed for pain. Problem Qualifiers Primary Impression: Contusion of head Encounter type: initial encounter Contusion of head detail: unspecified part of head Qualified Codes: S00.93XA - Contusion of unspecified part of head , initial encounter
== END 2017-12-08 23:11 | disposition home or self-care (01) ==
LOC: C.EDB 21:34
DX: S00.93XA Contusion of unspecified part of head, initial encounter (principal); W10.8XXA Fall (on) (from) other stairs and steps, initial encounter; R40.2412 Glasgow coma scale score 13-15, at arrival to emergency department; R03.0 Elevated blood-pressure reading, without diagnosis of hypertension; Z79.890 Hormone replacement therapy; Z82.49 Family history of ischemic heart disease and other diseases of the circulatory system